=== PATIENT | male | born 1950 | race Caucasian/White ===

== ENCOUNTER 2024-06-19 11:27 | Emergency (ER) | payer MEDICARE ==
[~2024-06-19] VITALS: Ht 180.3 cm; Wt 95.3 kg
[2024-06-19 11:38] VITALS: TEMP 97
--- NOTE | 2024-06-19 11:45 | ERN ---
ED Note History of Present Illness Stated Complaint: SOB WHEN WALKING Chief Complaint: Shortness of Breath Time Seen by MD: 11:37 Dictation: PATIENT IS A 74-YEAR-OLD MALE HERE WITH COMPLAINTS OF HAVING SHORTNESS A BREATH ON EXERTION AND WITH WALKING SINCE MARCH OF LAST YEAR. STATES HE WAS SEEN BY HIS DOCTORS IN [place] AND THEY CHANGED HIS DOSE OF METOPROLOL. STATES HE HAS NEVER FELT BETTER. NO FEVER NO CHILLS NO NAUSEA VOMITING. HE DOES HAVE A HISTORY OF CORONARY ARTERY DISEASE AND HAD AN DC SEVERAL YEARS AGO. NO FEVER NO CHILLS Allergies: Coded Allergies: No Known Drug Allergies (Unverified Allergy, Unknown, 06/19/24) Past Medical History RN Note Reviewed/Agreed w/PFSH: Yes Review of System Dictation CONSTITUTIONAL: Negative except for HPI HEAD/FACE: Negative except for HPI EENT: Negative except for HPI RESPIRATORY: Negative except for HPI exertional SOB three months GASTROINTESTINAL/ABDOMINAL: Negative except for HPI GENITOURINARY: Negative except for HPI MUSCULOSKELETAL: Negative except for HPI INTEGUMENTARY: Negative except for HPI NEUROLOGICAL/PSYCH: Negative except for HPI HEMATOLOGIC/LYMPHATIC: Negative except for HPI All Systems Negative, Except as noted above. 13 point review of systems assessed and all negative except for above. Initial Vital Sign VS Vital Signs Date Time Temp Pulse Resp B/P (MAP) Pulse Ox O2 Delivery O2 Flow Rate FiO2 06/19/24 11:38 97.0 49 20 126/64 94 Room Air 0 Physical Exam Dictation Vital Signs reviewed General Appearance: Alert, oriented x 3, no acute distress, well developed, nourished. Head and Face: non-traumatic. Eyes: PERRL, pink conjunctivas, eyelid no trauma, anterior chamber with arcus senilis. Ears: Pinnas intact and no signs of trauma or erythema ear canals clear and no discharge TM no erythema Nose: No discharge, no bleeding. Oropharynx: Mouth normal, tongue pink, pharynx clear,no erythema, tonsils no exudates, no abscesses noted, mucous membrane moist Neck: Supple, non-tender, no thyromegaly, no masses, no JVD, no bruits Breast:Deferred Chest:No tenderness, no crepitus, no paradoxical movement, no retractions Lungs:Clear, well-ventilated, symmetric, no rales, no wheezing, no rhonchi, no stridor, good breath sounds bilaterally diminished in the bases Heart: Regular rate, regular rhythm, no murmur, no gallops Vascular: Trace peripheral edema, Abdomen: Soft, positive bowel sounds, nondistended, no guarding, nontender, no rebound, no masses no hepatomegaly, no splenomegaly, no Luong's sign, no hernias. Rectal: Deferred Genital: Deferred Neurological: Normal speech, motor function intact, sensory function intact Musculoskeletal: Neck nontender, full range of motion, back nontender, full range of motion, Extremities: nontender, full range of motion Skin: Color pink, dry, no turgor, no rash, no lacerations, no abrasions, no contusions. Lymphatic: Deferred Results (Laboratory/Radiology) Laboratory/Radiology Laboratory Tests Test 06/19/24 12:00 06/19/24 12:26 06/19/24 13:14 Urine Color LIGHT-YELLOW (YELLOW) Urine Appearance CLEAR (CLEAR) Urine pH 5.5 (5.0-8.0) Urine Specific [place] 1.008 (1.001-1.031) Urine Protein NEGATIVE mg/dL (NEGATIVE) Urine Glucose (UA) NEGATIVE mg/dL (NEGATIVE) Urine Ketones NEGATIVE mg/dL (NEGATIVE) Urine Occult Blood NEGATIVE (NEGATIVE) Urine Nitrate NEGATIVE (NEGATIVE) Urine Bilirubin NEGATIVE mg/dL (NEGATIVE) Urine Urobilinogen 0.2 mg/dL (0.2-1.0) Urine Leukocyte Esterase NEGATIVE Frances/uL White Blood Count 10.1 K/uL (4.8-10.8) Red Blood Count 5.07 MIL/uL (4.50-6.20) Hemoglobin 15.0 g/dL (14.0-18.0) Hematocrit 45.1 % (42-54) Mean Corpuscular Volume 89.0 fL (79-99) Mean Corpuscular Hemoglobin 29.6 pg (27.0-33.0) Mean Corpuscular Hemoglobin Concent 33.3 g/dL (32.0-36.0) Red Cell Distribution Width 14.0 % (11.0-15.5) Platelet Count 218 K/uL (130-400) Mean Platelet Volume 9.3 fL (7.5-10.5) Immature Granulocyte % (Auto) 0.7 % (0-1) Neutrophils (%) (Auto) 81.0 % (40.0-77.0) H Lymphocytes (%) (Auto) 10.6 % (21.0-51.0) L Monocytes (%) (Auto) 6.6 % (3.0-13.0) Eosinophils (%) (Auto) 0.7 % (0.0-8.0) Basophils (%) (Auto) 0.4 % (0.0-5.0) Neutrophils # (Auto) 8.2 K/uL (1.8-7.7) H Lymphocytes # (Auto) 1.1 K/uL (1.0-4.8) Monocytes # (Auto) 0.7 K/uL (0.1-1.0) Eosinophils # (Auto) 0.07 K/uL (0.00-0.70) Basophils # (Auto) 0.04 K/uL (0.00-0.20) Absolute Immature Granulocyte (auto 0.07 K/uL (0-1) Nucleated Red Blood Cells 0.0 % (0.0-0.19) Troponin I High Sensitivity 44 ng/L (4-75) B-Type Natriuretic Peptide 29 pg/mL (0-100) SARS-CoV-2 Antigen (Rapid) PRESUMPTIVE NEGATIVE Sodium Level 138 mmol/L (136-145) Potassium Level 5.4 mmol/L (3.5-5.1) H Chloride Level 101 mmol/L (101-111) Carbon Dioxide Level 33 mmol/L (21-32) H Blood Urea Nitrogen 14 mg/dL (7-18) Creatinine 1.0 mg/dL (0.5-1.3) Glomerular Filtration Rate Calc 78 mL/min (>90) Random Glucose 117 mg/dL (70-105) H Total Calcium 9.9 mg/dL (8.5-10.1) Magnesium Level 2.20 mg/dL (1.80-2.40) CHEST 1VW HISTORY: Shortness of breath COMPARISON: None FINDINGS: A frontal projection of the chest was obtained. Prominent interstitial markings are seen with possible superimposed infiltrates. The heart is borderline enlarged. Degenerative changes are seen. No evidence of aortic calcification is seen. IMPRESSION: 1. Prominent interstitial markings are seen with possible superimposed infiltrates. Labs Reviewed?: Yes EKG Comment: [facility] Test Date: 2024-06-19 Test Time: 11:52:16 Pat Name: VAMSI KANG Department: [facility] Room: Gender: Male Fountain Server: [id number] : 1950 Requested By: LENORE MORRIS Order Number: [id number] Reading MD: Measurements Intervals [place] Rate: 50 P: 40 GA: 167 QRS: -23 QRSD: 154 T: 110 QT: 488 QTc: 417 Interpretive Statements Sinus bradycardia Atrial premature complexes Left bundle branch block ST elevation secondary to IVCD No previous ECG available for comparison Please click the below link to view image of tracing. ED Course ED Course Orders Procedure Category Date Status Time Covid19 (Sars Antigen LAB 06/19/24 Complete Rapid) 11:43 Cbc With Differential LAB 06/19/24 Complete 11:43 B-Type Natriuretic LAB 06/19/24 Complete Peptide 11:43 Chest 1vw RAD 06/19/24 Resulted 11:43 12 Lead Ekg Tracing- EKG 06/19/24 Complete Technical 11:43 Troponin I High LAB 06/19/24 Complete Sensitivity 11:43 Urinalysis Profile LAB 06/19/24 Complete 11:43 Basic Metabolic Panel LAB 06/19/24 Complete 12:48 Magnesium LAB 06/19/24 Complete 12:48 Levofloxacin 500mg PHA 06/19/24 Complete Tab (Levaquin 500mg T 15:30 Albuterol 0.083% PHA 06/19/24 Complete 2.5mg/3ml (Proventil 15:30 Current Medications Medications (Trade) Dose Ordered Sig/Amy Route PRN Reason Start Time Stop Time Status Last Admin Dose Admin Albuterol Sulfate (Proventil 0.083% 2.5mg/3ml) 5 mg ONCE ONCE IH 06/19/24 15:30 06/19/24 15:31 DC 06/19/24 15:38 Levofloxacin (LEvaquIN 500MG TAB) 500 mg ONCE ONCE PO 06/19/24 15:30 06/19/24 15:31 DC 06/19/24 15:19 Vital Signs Date Time Temp Pulse Resp B/P (MAP) Pulse Ox O2 Delivery O2 Flow Rate FiO2 06/19/24 15:38 52 20 06/19/24 11:38 97.0 49 20 126/64 94 Room Air 0 1600/PATIENT STATES HE FEELS MARKEDLY IMPROVED AFTER ALBUTEROL AND LEVAQUIN. DISCHARGED HOME WITH ATYPICAL PNEUMONIA WE WILL BE GIVEN ALBUTEROL, LEVAQUIN AND GIVEN INSTRUCTIONS FOR MANAGEMENT. HEART Score Response (Comments) Value EKG: Repolarization changes 1 Age: > 65yrs (+2) 2 Risk Factors: 1-2 risk factors (+1) 1 Initial Troponin: Normal limit (0) 0 Total 4 Medical Decision Making MDM MDM: DIFFERENTIAL DIAGNOSIS: ACS/AMI/CHF/PNEUMONIA/BRONCHITIS/ELECTROLYTE IMBALANCE/DEHYDRATION RATIONALE: TESTS CONSIDERED AND ORDERED SECONDARY TO SHARED DECISION MAKING INCLUDE: EKG/LABS/RADIOLOGY PREVIOUS OUTSIDE RECORDS REVIEWED: OLD ER VISITS. RISK OF COMPLICATION AND/OR MORBIDITY OR MORTALITY OF PATIENT MANAGEMENT: NONE MEDICATIONS-PER MEDICATION RECONCILIATION NEED FOR HOSPITALIZATION: PATIENT DOES NOT MEET CRITERIA FOR HOSPITALIZATION. NO NEED FOR EMERGENCY MAJOR/MINOR SURGERY: NO THERE ARE NO SOCIAL CONCERNS WITH THIS PATIENT. PRESCRIPTION DRUG MANAGEMENT LEVAQUIN/ALBUTEROL PRESCRIPTIONS WILL INCLUDE SYMPTOMATIC CARE PATIENT'S PRIOR EXTERNAL MEDICAL RECORDS FROM OTHER ER VISITS WERE REVIEWED BY ME INDICATED. PRIOR TESTING AND RESULTS FROM PREVIOUS VISITS WERE REVIEWED. PRIOR TESTS WERE TAKEN INTO ACCOUNT WITH MEDICAL DECISION MAKING AND RESOURCE UTILIZATION, INDEPENDENT HISTORIAN/HISTORIANS WERE USED TO OBTAIN COMPLETE MEDICAL HISTORY. I INDEPENDENTLY INTERPRETED THE TEST THAT WERE PERFORMED, RESULTS WERE REVIEWED BY ME AND CONSIDERED FINDINGS ON RADIOLOGY IF ORDERED. MEDICAL MANAGEMENT AND EXAMINATION INTERPRETATION DISCUSSIONS WERE HAD BY ME WITH OTHER QUALIFIED HEALTHCARE PROFESSIONALS INDICATED FOR THE PATIENT'S CARE. DX & DISP Disposition: Discharge Departure Impression: Primary Impression: Atypical pneumonia Additional Impressions: Hyperglycemia, Dyspnea Condition: Stable Scripts Levofloxacin (Levofloxacin) 500 Mg Tablet 1 TAB PO DAILY for 10 Days, #10 TAB 0 Refills Prov: LENORE MORRIS BAKERY WORKER CONVEYOR LINE 06/19/24 Albuterol Sulfate (Ventolin Hfa/Proventil Hfa/Proair Hfa) 90 Mcg Puff 2 PUFF IH Q4H for WHEEZING, #1 INHALER 1 Refill TWO PUFFS EVERY4 HOURS WHILE AWAKE P.R.N. SHORTNESS A BREATH Prov: LENORE MORRIS BAKERY WORKER CONVEYOR LINE 06/19/24 Additional Instructions: FOLLOW-UP WITH PRIMARY CARE PROVIDER IN 1 TO 2 DAYS. TAKE MEDICATIONS DIRECTED HERE IN THE EMERGENCY ROOM. OKAY TO CONTINUE HOME MEDICATIONS UNLESS OTHERWISE DISCUSSED DURING YOUR VISIT IN THE EMERGENCY ROOM TODAY. RETURN TO YOUR NEAREST EMERGENCY ROOM IF SYMPTOMS WORSEN OR IF THERE IS NO IMPROVEMENT. CALL 911 IF YOU NEED IMMEDIATE ASSISTANCE. TAKE TYLENOL OR MOTRIN [id number] NEEDED AND IF NO CONTRAINDICATIONS ARE PRESENT. INCREASE ORAL HYDRATION. A WOUND CULTURE OR URINE CULTURE WAS ORDERED HERE IN THE EMERGENCY ROOM DEPARTMENT PLEASE FOLLOW-UP WITH PRIMARY CARE PROVIDER AND ADVISE THEM TO GET REPEAT PORTS FROM OUR FACILITY. IF YOU HAD ANY CYNDIE WRAP/SPLINTS THAT WERE APPLIED HERE, PLEASE DO NOT REMOVE THEM UNTIL YOU SEE YOUR PRIMARY CARE OR SPECIALTY. TAKE ANTIBIOTICS DIRECTED UNTIL GONE. USE ALBUTEROL INHALER EVERY4 HOURS WHILE AWAKE FOR THE NEXT THREE DAYS DIRECTED AND DISCUSSED. COUGH VIGOROUSLY 2-3 TIMES AFTER USING YOUR ALBUTEROL INHALER TWO COUGH UP ANY PHLEGM. Time of Disposition: 16:00 I have reviewed the case, and I agree with, Diagnosis and Plan LENORE MORRIS NP Jun 19, 2024 11:44
[2024-06-19 12:18] LABS: APPEARANCE,URINE CLEAR (CLEAR); BILIRUBIN,URINE NEGATIVE (NEGATIVE); COLOR,URINE LIGHT-YELLOW (YELLOW); GLUCOSE, URINE (UA) NEGATIVE (NEGATIVE); KETONES,URINE NEGATIVE (NEGATIVE); LEUKOCYTE ESTERASE ,URINE NEGATIVE Leu/uL (NEGATIVE); NITRATE,URINE NEGATIVE (NEGATIVE); OCCULT BLOOD,URINE NEGATIVE (NEGATIVE); PH,URINE 5.5 (5.0-8.0); PROTEIN,URINE NEGATIVE (NEGATIVE); UROBILINOGEN,URINE 0.2 mg/dL (0.2-1.0)
--- NOTE | 2024-06-19 12:22 | EKG ---
[facility] Test Date: 2024-06-19 Test Time: 11:52:16 Pat Name: VAMSI KANG Department: ED Room: Gender: Resident Care Coordinator: [id number] : 1950 Requested By: LENORE MORRIS Order Number: [id number] Reading MD: Dariusz Whiteside Measurements Intervals [place] Rate: 50 P: 40 [place]: 167 QRS: -23 QRSD: 154 T: 110 QT: 488 QTc: 417 Interpretive Statements Sinus bradycardia Atrial premature complexes Left bundle branch block ST elevation secondary to IVCD No previous ECG available for comparison Electronically Signed On 06-19-2024 17:09:15 NURSE CASE MANAGER by Dariusz Whiteside Please click the below link to view image of tracing.
[2024-06-19 12:23] LABS: ADD UA MICROSCOPIC NO
--- NOTE | 2024-06-19 12:24 | HMCIMG ---
CHEST 1VW HISTORY: Shortness of breath COMPARISON: None FINDINGS: A frontal projection of the chest was obtained. Prominent interstitial markings are seen with possible superimposed infiltrates. The heart is borderline enlarged. Degenerative changes are seen. No evidence of aortic calcification is seen. IMPRESSION: 1. Prominent interstitial markings are seen with possible superimposed infiltrates.
[2024-06-19 12:38] LABS: BASOPHILS # (AUTO) 0.04 K/uL (0.00-0.20); BASOPHILS % (AUTO) 0.4 % (0.0-5.0); EOSINOPHILS # (AUTO) 0.07 K/uL (0.00-0.70); EOSINOPHILS % (AUTO) 0.7 % (0.0-8.0); HEMATOCRIT 45.1 % (42-54); IMMATURE GRANULOCYTE ABSOLUTE 0.07 K/uL (0-1); LYMPHOCYTES # (AUTO) 1.1 K/uL (1.0-4.8); LYMPHOCYTES % (AUTO) 10.6 % (21.0-51.0); MEAN CORPUSCULAR HEMOGLOBIN 29.6 pg (27.0-33.0); MEAN CORPUSCULAR HGB CONC 33.3 g/dL (32.0-36.0); MONOCYTES # (AUTO) 0.7 K/uL (0.1-1.0); MONOCYTES % (AUTO) 6.6 % (3.0-13.0); NEUTROPHILS # (AUTO) 8.2 K/uL (1.8-7.7); PLATELET COUNT (AUTO) 218 K/uL (130-400); RED BLOOD CELL COUNT(AUTO) 5.07 MIL/uL (4.50-6.20); WHITE BLOOD COUNT (AUTO) 10.1 K/uL (4.8-10.8)
[2024-06-19 12:58] LABS: B-TYPE NATRIURETIC PEPTIDE 29 pg/mL (0-100)
[2024-06-19 13:45] LABS: MAGNESIUM 2.2 mg/dL (1.80-2.40); POTASSIUM 5.4 mmol/L (3.5-5.1)
[2024-06-19] MEDS: levoFLOXacin 500 MG TABLET PO ONE (15:19)
[2024-06-19 15:38] VITALS: PULSE 52; RESP 20
[2024-06-19] MEDS: ALBUTEROL 0.083% 2.5 MG/3 ML INH IH ONE (15:38)
[2024-06-19] MEDS ORDERED: ALBUHFA IH (16:02)
[2024-06-19] MEDS ORDERED: LEVO-70 PO (16:02)
[2024-06-19 16:26] VITALS: BP 104/55; PULSE 63; RESP 20; O2SAT 99
== END 2024-06-19 16:10 | disposition home or self-care (01) ==
LOC: EDH 11:27
DX: J18.9 Pneumonia, unspecified organism (principal); R73.9 Hyperglycemia, unspecified; R06.00 Dyspnea, unspecified; Z20.822 Contact with and (suspected) exposure to COVID-19
CPT/HCPCS: 36415; 71045; 80048; 81003; 83735; 83880; 84484; 85025; 87426; 93005; 94640; 99285

== ENCOUNTER 2024-06-29 09:56 | Emergency (ER) | payer MEDICARE ==
[~2024-06-29] VITALS: Ht 180.3 cm; Wt 93.0 kg
[~2024-06-29 09:56] MED LIST: ALBUHFA IH; LEVO-70 PO
--- NOTE | 2024-06-29 10:16 | ERN ---
ED Note History of Present Illness Stated Complaint: DX W/ PNUMONIA 8 DAYS AGO, HERE FOR F/UP Chief Complaint: Other Problems Time Seen by MD: 10:06 Dictation: PATIENT IS A 74-YEAR-OLD MALE COMING IN TODAY WITH NO COMPLAINTS OTHER THAN I WANT TO FOLLOW UP AFTER I WAS DIAGNOSED BY YOU WITH PNEUMONIA EIGHT DAYS AGO. HE STATES HE HAS HAD NO FEVER NO CHILLS NO COUGH, HAS BEEN WALKING MORE THAN MILD EVERY DAY WITHOUT SHORTNESS A BREATH. NO PRIMARY CARE DOCTOR Allergies: Coded Allergies: No Known Drug Allergies (Unverified Allergy, Unknown, 06/19/24) Home Meds Active Scripts Levofloxacin (Levofloxacin) 500 Mg Tablet, 1 TAB PO DAILY for 10 Days, #10 TAB 0 Refills Prov:LENORE MORRIS NP 06/19/24 Albuterol Sulfate (Ventolin Hfa/Proventil Hfa/Proair Hfa) 90 Mcg Puff, 2 PUFF IH Q4H for WHEEZING, #1 INHALER 1 Refill TWO PUFFS EVERY4 HOURS WHILE AWAKE P.R.N. SHORTNESS A BREATH Prov:LENORE MORRIS DEVELOPMENT COACH 06/19/24 Past Medical History Past Medical History: Anxiety, Arthritis, High Cholesterol, Heart Disease, Hypertension, [place], Pneumonia Surgical History: None Surgical History Other: ANGIO CATH PSYCH History: no pertinent psych hx RN Note Reviewed/Agreed w/PFSH: Yes Review of System Dictation CONSTITUTIONAL: NEGATIVE EXCEPT FOR HPI HEAD/FACE: NEGATIVE EXCEPT FOR HPI EENT: NEGATIVE EXCEPT FOR HPI RESPIRATORY: NEGATIVE EXCEPT FOR HPI GASTROINTESTINAL/ABDOMINAL: NEGATIVE EXCEPT FOR HPI GENITOURINARY: NEGATIVE EXCEPT FOR HPI MUSCULOSKELETAL: NEGATIVE EXCEPT FOR HPI INTEGUMENTARY: NEGATIVE EXCEPT FOR HPI NEUROLOGICAL/PSYCH: NEGATIVE EXCEPT FOR HPI HEMATOLOGIC/LYMPHATIC: NEGATIVE EXCEPT FOR HPI ALL SYSTEMS NEGATIVE, EXCEPT NOTED ABOVE. 13 POINT REVIEW OF SYSTEMS ASSESSED AND ALL NEGATIVE EXCEPT FOR ABOVE. Initial Vital Sign VS Vital Signs Date Time Temp Pulse Resp B/P (MAP) Pulse Ox O2 Delivery O2 Flow Rate FiO2 06/29/24 09:59 97.9 58 16 118/65 95 Room Air 0 Physical Exam Dictation VITAL SIGNS REVIEWED NO ACUTE DISTRESS GENERAL APPEARANCE: ALERT, ORIENTED X 3, NO ACUTE DISTRESS, WELL DEVELOPED, NOURISHED. HEAD AND FACE: NON-TRAUMATIC. EYES: PERRL, PINK CONJUNCTIVAS, EYELID NO TRAUMA, ANTERIOR CHAMBER WITH ARCUS SENILIS. EARS: PINNAS INTACT AND NO SIGNS OF TRAUMA OR ERYTHEMA EAR CANALS CLEAR AND NO DISCHARGE TM NO ERYTHEMA NOSE: NO DISCHARGE, NO BLEEDING. OROPHARYNX: MOUTH NORMAL, TONGUE PINK, PHARYNX CLEAR,NO ERYTHEMA, TONSILS NO EXUDATES, NO ABSCESSES NOTED, MUCOUS MEMBRANE MOIST NECK: SUPPLE, NON-TENDER, NO THYROMEGALY, NO MASSES, NO JVD, NO BRUITS BREAST:DEFERRED CHEST:NO TENDERNESS, NO CREPITUS, NO PARADOXICAL MOVEMENT, NO RETRACTIONS LUNGS:CLEAR, WELL-VENTILATED, SYMMETRIC, NO RALES, NO WHEEZING, NO RHONCHI, NO STRIDOR, GOOD BREATH SOUNDS BILATERALLY HEART: REGULAR RATE, REGULAR RHYTHM, NO MURMUR, NO GALLOPS VASCULAR: NO PERIPHERAL EDEMA, ABDOMEN: SOFT, POSITIVE BOWEL SOUNDS, NONDISTENDED, NO GUARDING, NONTENDER, NO REBOUND, NO MASSES NO HEPATOMEGALY, NO SPLENOMEGALY, NO TUTTLE'S SIGN, NO HERNIAS. RECTAL: DEFERRED GENITAL: DEFERRED NEUROLOGICAL: NORMAL SPEECH, MOTOR FUNCTION INTACT, SENSORY FUNCTION INTACT MUSCULOSKELETAL: NECK NONTENDER, FULL RANGE OF MOTION, BACK NONTENDER, FULL RANGE OF MOTION, EXTREMITIES: NONTENDER, FULL RANGE OF MOTION SKIN: COLOR PINK, DRY, NO TURGOR, NO RASH, NO LACERATIONS, NO ABRASIONS, NO C ONTUSIONS. LYMPHATIC: DEFERRED Results (Laboratory/Radiology) Laboratory/Radiology 1045 CHEST X-RAY NEGATIVE Labs Reviewed?: Yes ED Course ED Course Orders Procedure Category Date Status Time Chest 1vw RAD 06/29/24 Taken 10:13 Vital Signs Date Time Temp Pulse Resp B/P (MAP) Pulse Ox O2 Delivery O2 Flow Rate FiO2 06/29/24 09:59 97.9 58 16 118/65 95 Room Air 0 1045 PATIENT DISCHARGED HOME WITH RESOLVED ATYPICAL PNEUMONIA. PATIENT TOLD TO CONTINUE ANTIBIOTICS UNTIL THEY ARE GONE FROM HIS ER VISIT, IF HE IS NOT HAVING SHORTNESS A BREATH HE MAY STOP INHALERS. Medical Decision Making MDM MEDICAL DECISION-MAKING BASED ON CHEST X-RAY TO RULE OUT PNEUMONIA PNEUMONIA IS RESOLVE WITH CLEAR CHEST X-RAY. PATIENT INSTRUCTED TO CONTINUE ANTIBIOTICS UNTIL GONE, MAY STOP INHALERS IF NO LONGER NECESSARY DX & DISP Disposition: Discharge Departure Impression: Primary Impression: Encounter for wellness examination in adult Additional Impression: Atypical pneumonia Condition: Stable Additional Instructions: FOLLOW-UP WITH PRIMARY CARE PROVIDER IN 1 TO 2 DAYS. TAKE MEDICATIONS DIRECTED HERE IN THE EMERGENCY ROOM. OKAY TO CONTINUE HOME MEDICATIONS UNLESS OTHERWISE DISCUSSED DURING YOUR VISIT IN THE EMERGENCY ROOM TODAY. RETURN TO YOUR NEAREST EMERGENCY ROOM IF SYMPTOMS WORSEN OR IF THERE IS NO IMPROVEMENT. CALL 911 IF YOU NEED IMMEDIATE ASSISTANCE. TAKE TYLENOL OR MOTRIN [id number] NEEDED AND IF NO CONTRAINDICATIONS ARE PRESENT. INCREASE ORAL HYDRATION. A WOUND CULTURE OR URINE CULTURE WAS ORDERED HERE IN THE EMERGENCY ROOM DEPARTMENT PLEASE FOLLOW-UP WITH PRIMARY CARE PROVIDER AND ADVISE THEM TO GET REPEAT PORTS FROM OUR FACILITY. IF YOU HAD ANY CYNDIE WRAP/SPLINTS THAT WERE APPLIED HERE, PLEASE DO NOT REMOVE THEM UNTIL YOU SEE YOUR PRIMARY CARE OR SPECIALTY. = CONTINUE ANTIBIOTICS DIRECTED FROM YOUR LAST ER VISIT UNTIL GONE. MAY STOP USING INHALERS IF NOT NECESSARY FOLLOW UP WITH ONE OF THE DOCTORS ON THE LIST PROVIDED YOU IN THE NEXT 2-3 DAYS NEEDED. Referrals: NONE (PCP) Time of Disposition: 10:48 I have reviewed the case, and I agree with, Diagnosis and Plan LENORE MORRIS NP Jun 29, 2024 10:16
[2024-06-29 11:03] VITALS: BP 128/77; PULSE 58; RESP 18; TEMP 97.8; O2SAT 95
--- NOTE | 2024-06-29 11:28 | HMCIMG ---
CHEST 1VW REASON: Cough. History of pneumonia COMPARISON: 06/19/2024 FINDINGS: Single view of the chest was obtained. Lungs are clear. Heart size is normal. There is no pulmonary vascular congestion. Mediastinum and bony thorax appear unremarkable. IMPRESSION: 1. Normal single view chest x-ray.
== END 2024-06-29 11:08 | disposition home or self-care (01) ==
LOC: EDH 09:56
DX: J18.9 Pneumonia, unspecified organism (principal); E78.00 Pure hypercholesterolemia, unspecified; I10 Essential (primary) hypertension; F41.9 Anxiety disorder, unspecified; I25.2 Old myocardial infarction; M19.90 Unspecified osteoarthritis, unspecified site; Z87.01 Personal history of pneumonia (recurrent)
CPT/HCPCS: 71045; 99283